=== PATIENT | female | born 1965 | race Hispanic/Latino ===

== ENCOUNTER 2025-05-22 09:46 | Outpatient (CLI) | payer OTHER | END 2025-05-22 09:47 | disposition home or self-care (01) | LOC: RAD 09:46 | PROVIDERS: ATTEND Internal Medicine | DX: J44.9 Chronic obstructive pulmonary disease, unspecified (principal); J47.0 Bronchiectasis with acute lower respiratory infection; J90 Pleural effusion, not elsewhere classified | CPT/HCPCS: 71046 ==